=== PATIENT | female | born 1970 | race Caucasian/White ===

== ENCOUNTER 2020-12-13 20:48 | Emergency (ER) | payer OTHER ==
[2020-12-13 21:57] LABS: ANION GAP 13.8 mEq/L (7-13)
--- NOTE | 2020-12-13 22:19 | EDM.PDOC ---
ED HPI GENERAL MEDICAL PROBLEM - General Chief Complaint: General Stated Complaint: RIGHT LEG, BELOW KNEE CAP, BLOOD CLOUGHT PER PT Time Seen by Provider: 12/13/20 22:05 Source of Information: Reports: Patient History Limitations: Reports: No Limitations - History of Present Illness INITIAL COMMENTS - FREE TEXT/NARRATIVE: This 50 yo female patient reports to the ED with right lower lateral leg pain and swelling. The patient reports she just got to the area after driving about 6 hours when she noticed swelling and tenderness. The patient reports she has had increased symptoms since that time. The patient reports she has no history of blood clots. The patient has no additional health concerns. Onset: Today Onset Date: 12/13/20 Onset Time: 16:00 Duration: Constant Location: Reports: Lower Extremity, Right Quality: Reports: Ache, Dull Severity: Mild Improves with: Reports: None Worsens with: Reports: None Context: Reports: Other Associated Symptoms: Reports: No Other Symptoms - Related Data Allergies Allergy/AdvReac Type Severity Reaction Status Date / Time No Known Allergies Allergy Verified 12/13/20 21:30 Past Medical History Other Musculoskeletal History: prior back surgery Endocrine/Metabolic History: Reports: Hypothyroidism Oncologic (Cancer) History: Reports: Breast - Past Surgical History Female Surgical History: Reports: Breast Implant, Section, Mastectomy Other Female Surgeries/Procedures: 2 c sections, double mastectomy with implants Other Endocrine Surgeries/Procedures: takes synthroid- unsure of dose Oncologic Surgical History: Reports: Mastectomy Social & Family History - Tobacco Use Tobacco Use Status *Q: Former Tobacco User Years of Tobacco use: 20 Used Tobacco, but Quit: Yes Month/Year Tobacco Last Used: 12 years ED ROS GENERAL - Review of Systems Review Of Systems: Comprehensive ROS is negative, except as noted in HPI. ED EXAM, GENERAL - Physical Exam Exam: See Below Exam Limited By: No Limitations General Appearance: Alert, WD/WN, Anxious, Mild Distress Eye Exam: Bilateral Eye: EOMI, Normal Inspection, PERRL Ears: Normal External Exam, Normal Canal, Hearing Grossly Normal, Normal TMs Nose: Normal Inspection, Normal Mucosa, No Blood Throat/Mouth: Normal Inspection, Normal Lips, Normal Teeth, Normal Gums, Normal Oropharynx, Normal Voice, No Airway Compromise Head: Atraumatic, Normocephalic Neck: Normal Inspection, Supple, Non-Tender, Full Range of Motion Respiratory/Chest: No Respiratory Distress, Lungs Clear, Normal Breath Sounds, No Accessory Muscle Use, Chest Non-Tender Cardiovascular: Normal Peripheral Pulses, Regular Rate, Rhythm, No Edema, No Gallop, No JVD, No Murmur, No Rub GI/Abdominal: Normal Bowel Sounds (Female) Exam: Deferred Rectal (Female) Exam: Deferred Back Exam: Normal Inspection, Full Range of Motion, NT Extremities: Leg Pain (Right lateral lower extremity tenderness and swelling) Neurological: Alert, Oriented, CN II-XII Intact, Normal Cognition, Normal Gait, Normal Reflexes, No Motor/Sensory Deficits Psychiatric: Normal Affect, Normal Mood Skin Exam: Warm, Dry, Intact, Normal Color, No Rash Lymphatic: No Adenopathy Course - Vital Signs Last Recorded V/S: Last Vital Signs Temp 97.2 F 12/13/20 21:08 Pulse 73 12/13/20 21:08 Resp 18 12/13/20 21:08 BP 135/83 12/13/20 21:08 Pulse Ox 98 12/13/20 21:08 - Orders/Labs/Meds Labs: Laboratory Tests 12/13/20 12/13/20 12/13/20 Range/Units 21:33 21:33 21:33 WBC 5.6 (5.0-10.0) 10^3/uL RBC 4.04 L (4.2-5.4) 10^6/uL Hgb 13.2 (12.0-16.0) g/dL Hct 37.4 (37.0-47.0) % MCV 92.6 (80-100) fL MCH 32.7 (27.0-34.0) pg MCHC 35.3 H (33.0-35.0) g/dL Plt Count 317 (150-450) 10^3/uL Neut % (Auto) 58.4 (42.2-75.2) % Lymph % (Auto) 28.2 (20.5-50.1) % Prentiss % (Auto) 10.2 H (2-8) % Eos % (Auto) 2.3 (1.0-3.0) % Baso % (Auto) 0.9 (0.0-1.0) % D-Dimer, Quantitative 172 (0-400) ng/mL Sodium 140 (136-145) mmol/L Potassium 3.8 (3.5-5.1) mmol/L Chloride 102 (98-107) mmol/L Carbon Dioxide 28 (21-32) mmol/L Anion Gap 13.8 H (7-13) mEq/L BUN 10 (7-18) mg/dL Creatinine 1.03 H (0.55-1.02) mg/dL Est Cr Clr Drug Dosing 64.45 mL/min Estimated GFR (MDRD) 56 BUN/Creatinine Ratio 9.7 (No establ ref range) Glucose 95 (70-99) mg/dL Calcium 9.0 (8.5-10.1) mg/dL Total Bilirubin 0.4 (0.2-1.0) mg/dL AST 19 (15-37) U/L ALT 28 (14-59) U/L Alkaline Phosphatase 78 (46-116) U/L Total Protein 6.8 (6.4-8.2) g/dL Albumin 3.9 (3.4-5.0) g/dL Globulin 2.9 Albumin/Globulin Ratio 1.3 - Radiology Interpretation Free Text/Narrative:: [facility] - [facility] Final Radiology Report Call: [phone] assistance Online chat: [email or web address] Name: RIC PAN Age: 50Years F Date: 12/13/2020 SSN: -- : [id number] Study: US VENOUS DOPPLER LWR EXT RT Requesting Physician: Tono Damon Images: 38 Addl Studies: Provided Clinical History: Pain swelling right lower lateral leg Contrast: Contrast Medium: Contrast Amount: Contrast Method: CONFIDENTIALITY STATEMENT This report is intended only for use by the referring physician, and only in accordance with law. If you received this in error, call [phone]. Page 1 of 1 PROCEDURE INFORMATION: Exam: US Duplex Right Lower Extremity Veins, Limited Exam date and time: 12/13/2020 10:32 PM Age: 50 years old Clinical indication: Pain; Leg, lower; Right; Additional info: Pain swelling right lower lateral leg TECHNIQUE: Imaging protocol: Real-time Duplex ultrasound of the Right Lower Extremity with 2-D rawls scale, color Doppler flow and spectral waveform analysis with image documentation. Limited exam was focused on the right lower extremity veins. COMPARISON: No relevant prior studies available. FINDINGS: Right deep veins: Unremarkable. The common femoral, femoral, proximal profunda femoral and popliteal veins are patent without thrombus. Normal Doppler waveforms. Normal compressibility and/or augmentation response. Right superficial veins: Unremarkable. Saphenofemoral junction is patent without thrombus. Soft tissues: Superficial varicosities involving the right calf. IMPRESSION: No evidence of deep vein thrombosis. Thank you for allowing us to participate in the care of your patient. Dictated and Authenticated by: Rayo Weinstein MD 12/14/2020 12:28 AM Central Time ([place] & [place]) Departure - Departure Time of Disposition: 00:32 Disposition: Home, Self-Care 01 Condition: Good Clinical Impression: Pain of right lower extremity - Discharge Information *PRESCRIPTION DRUG MONITORING PROGRAM REVIEWED*: Not Applicable *COPY OF PRESCRIPTION DRUG MONITORING REPORT IN PATIENT KIERSTEN: Not Applicable Forms: ED Department Discharge Care Plan Goals: The patient was advised of the examination, lab and ultrasound results during the visit. The patient was advised to take Tylenol or ibuprofen for temporary symptom relief. If the patient has any additional symptoms or concerns, the patient should either return to the emergency department or visit her primary care facility. Sepsis Event Note (ED) - Evaluation Sepsis Screening Result: No Definite Risk - Focused Exam Vital Signs: Vital Signs Temp Pulse Resp BP Pulse Ox 12/13/20 21:08 97.2 F 73 18 135/83 98
--- NOTE | 2020-12-14 00:29 | US ---
PROCEDURE INFORMATION: Exam: US Duplex Right Lower Extremity Veins, Limited Exam date and time: 12/13/2020 10:32 PM Age: 50 years old Clinical indication: Pain; Leg, lower; Right; Additional info: Pain swelling right lower lateral leg TECHNIQUE: Imaging protocol: Real-time Duplex ultrasound of the Right Lower Extremity with 2-D rawls scale, color Doppler flow and spectral waveform analysis with image documentation. Limited exam was focused on the right lower extremity veins. COMPARISON: No relevant prior studies available. FINDINGS: Right deep veins: Unremarkable. The common femoral, femoral, proximal profunda femoral and popliteal veins are patent without thrombus. Normal Doppler waveforms. Normal compressibility and/or augmentation response. Right superficial veins: Unremarkable. Saphenofemoral junction is patent without thrombus. Soft tissues: Superficial varicosities involving the right calf. IMPRESSION: No evidence of deep vein thrombosis.
== END 2020-12-14 00:38 | disposition home or self-care (01) ==
LOC: DL.ED 20:48
DX: M79.661 Pain in right lower leg (principal); Z87.891 Personal history of nicotine dependence
CPT/HCPCS: 36415; 80053; 85025; 85379; 93971; 99283; 99284-25